=== PATIENT | female | born 1965 | race Caucasian/White ===

== ENCOUNTER 2017-07-01 12:34 | Day surgery (SDC) | payer OTHER ==
[2017-07-01] MEDS ORDERED: LIDOCAINE HCL 10 APPL CARTRIDGE TP ONE (13:55)
[2017-07-01 14:26] VITALS: BP 169/97
== END 2017-07-01 12:35 | disposition home or self-care (01) ==
LOC: AMB 12:34
PROVIDERS: ATTEND Urology
PROC: 3E1K88X Irrigation of Genitourinary Tract using Irrigating Substance, Via Natural or Artificial Opening Endoscopic, Diagnostic (ICD-10-PCS; 2017-07-01)
PROC: 0TJB8ZZ Inspection of Bladder, Via Natural or Artificial Opening Endoscopic (ICD-10-PCS; principal; 2017-07-01 13:35)
DX: R31.0 Gross hematuria (principal); E66.9 Obesity, unspecified; Z68.30 Body mass index [BMI] 30.0-30.9, adult